=== PATIENT | male | born 1950 | race African-American/Black ===

== ENCOUNTER 2017-12-17 00:59 | Emergency (ER) | payer OTHER, MEDICARE ==
[~2017-12-17] VITALS: Ht 177.8 cm; Wt 100.0 kg
[~2017-12-17 00:59] MED LIST: ASPI325T PO; BPH MED PO; CYCL-36 PO; DIPH12.5 PO; FINA5TAB77 PO; MELO15TA2 PO; MORP1CAP62 PO; OMEP20TA OR; OXYC30TA3 PO; PRED5TAB PO
[2017-12-17 01:15] VITALS: BP 149/80; PULSE 55; RESP 18; TEMP 98.7; O2SAT 97
[2017-12-17 01:39] LABS: AUTOMATED NEUTROPHIL # 3.3 TH/MM3 (1.8-7.7); BASOPHIL # 0.1 TH/MM3 (0-0.2); BASOPHIL % 1.1 % (0.0-2.0); EOSINOPHIL # 0.1 TH/MM3 (0-0.4); EOSINOPHIL % 1.1 % (0.0-4.0); HEMATOCRIT 42.3 % (39.0-51.0); HEMOGLOBIN 14.3 GM/DL (13.0-17.0); LYMPH % 32.9 % (9.0-44.0); LYMPHOCYTE # 1.9 TH/MM3 (1.0-4.8); MEAN CELL VOLUME 94.6 FL (80.0-100.0); MEAN CORPUSCULAR HEMOGLOBIN 31.9 PG (27.0-34.0); MEAN CORPUSCULAR HGB CONC 33.7 % (32.0-36.0); MEAN PLATELET VOLUME 8.1 FL (7.0-11.0); MONO % 8.6 % (0.0-8.0); MONOCYTE # 0.5 TH/MM3 (0-0.9); NEUT % 56.3 % (16.0-70.0); PLATELET COUNT 133 TH/MM3 (150-450); RED BLOOD COUNT 4.47 MIL/MM3 (4.50-5.90); RED CELL DISTRIBUTION WIDTH 13.7 % (11.6-17.2); WHITE BLOOD COUNT 5.8 TH/MM3 (4.0-11.0)
[2017-12-17 01:51] LABS: PROTHROMBIN TIME - PATIENT 10.4 SEC (9.8-11.6)
[2017-12-17 02:10] LABS: BICARBONATE 31.1 MEQ/L (21.0-32.0); CALCIUM 8.8 MG/DL (8.5-10.1); CREATININE 1.19 MG/DL (0.60-1.30)
[2017-12-17 02:14] LABS: TROPONIN I 0.13 NG/ML (0.02-0.05)
--- NOTE | 2017-12-17 14:20 | EKG ---
Date Performed: 12/17/2017 Time Performed: 01:05:33 PTAGE: 67 years EKG: SINUS BRADYCARDIA BORDERLINE LEFT AXIS DEVIATION VOLTAGE CRITERIA FOR LVH ABNORMAL ECG No s ignificant change from prior electrocardiogram. NO PREVIOUS TRACING DOCTOR: Igor Parkinson Interpretating Date/Time 12/17/2017 14:18:56
== END 2017-12-17 03:41 | disposition left against medical advice (07) ==
LOC: NED 00:59
DX: Z53.21 Procedure and treatment not carried out due to patient leaving prior to being seen by health care provider (principal); R00.1 Bradycardia, unspecified
CPT/HCPCS: 80048; 82550; 82552; 84484; 85025; 85610; 85730; 93005; 99281